=== PATIENT | female | born 1980 | race Caucasian/White ===

== ENCOUNTER 2018-03-12 23:22 | Emergency (ER) | payer SELFPAY ==
[2018-03-13] MEDS ORDERED: METOCLOPRAMIDE 10 MG/2mL INJ ONE (00:10)
[2018-03-13] MEDS ORDERED: KETOROLAC 30 MG/ML INJ ONE (00:10)
[2018-03-13] MEDS ORDERED: DIPHENHYDRAMINE 50 MG/ML VIAL ONE (00:10)
--- NOTE | 2018-03-13 01:00 | ER ---
Nurse's Notes [facility] Name: Guero Chanel Age: 37 yrs Sex: Female : 1980 Arrival Date: 03/12/2018 Time: 23:25 Bed 19 Private MD: Diagnosis: Headache;Dental caries Presentation: 03/12 23:49 Presenting complaint: Patient states: "I had a seizure while on a [employer] [address] [place] to [place] and ever since then, I have had a bad migraine and nausea and vomiting.". Transition of care: patient was not received from another setting of care. Onset of symptoms was February 2018. Risk Assessment: Do you want to hurt yourself or someone else? Patient reports no desire to harm self or others. Initial Sepsis Screen: Does the patient meet any 2 criteria? No. Patient's initial sepsis screen is negative. Does the patient have a suspected source of infection? No. Patient's initial sepsis screen is negative. Care prior to arrival: None. 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 - Social history:: Smoking status: unknown. - Ebola Screening: : Patient negative for fever greater than or equal to 101.5 degrees Fahrenheit, and additional compatible Ebola Virus Disease symptoms. Screenin/30 00:41 Abuse screen: Denies threats or abuse. Nutritional screening: No deficits noted. jd3 Tuberculosis screening: No symptoms or risk factors identified. Fall Risk IV access (20 points). Ambulatory Aid- None/Bed Rest/Nurse Assist (0 pts). Gait- Normal/Bed Rest/Wheelchair (0 pts) Mental Status- Oriented to own ability (0 pts). Total Joyce Fall Scale indicates No Risk (0-24 pts). Assessment: 03/12 23:33 General: Appears in no apparent distress. uncomfortable, Behavior is calm, cooperative, jd3 appropriate for age. Pain: Complains of pain in head. Neuro: Level of Consciousness is awake, alert, obeys commands, Oriented to person, place, time, situation. Cardiovascular: Capillary refill < 3 seconds Patient's skin is warm and dry. Respiratory: Airway is patent Respiratory effort is even, unlabored, Respiratory pattern is regular, symmetrical. GI: Abdomen is round non-distended, Reports nausea, vomiting. : No signs and/or symptoms were reported regarding the genitourinary system. EENT: No signs and/or symptoms were reported regarding the EENT system. Derm: Skin is intact, Skin is dry, Skin is normal, Skin temperature is warm. Musculoskeletal: Circulation, motion, and sensation intact. Range of motion: intact in all extremities. 03/13 00:42 Reassessment: Patient appears in no apparent distress at this time. Patient and/or jd3 family updated on plan of care and expected duration. Pain level reassessed. Patient is alert, oriented x 3, equal unlabored respirations, skin warm/dry/pink. 01:14 Reassessment: Patient appears in no apparent distress at this time. Patient and/or jd3 family updated on plan of care and expected duration. Pain level reassessed. Patient is alert, oriented x 3, equal unlabored respirations, skin warm/dry/pink. Vital Signs: 03/12 23:43 BP 127 / 96; Pulse 86; Resp 18; Temp 98.5; Pulse Ox 100% on R/A; Weight 70.76 kg; mw2 Height 5 ft. 3 in. (160.02 cm); Pain 8/10; 03/13 00:42 BP 101 / 65; Pulse 73; Resp 16 S; Pulse Ox 100% on R/A; jd3 03/12 23:43 Body Mass Index 27.63 (70.76 kg, 160.02 cm) 2 ED Course: 03/12 23:25 Patient arrived in ED. am2 23:33 Gideon Aponte RN is Primary Nurse. jd3 23:36 Hernan Wilson MD is Attending Physician. 23:51 Triage completed. jd3 23:51 Inserted saline lock: 20 gauge in right antecubital area, using aseptic technique. mw2 Blood collected. 23:58 Arm band placed on. jd3 03/13 00:41 Patient has correct armband on for positive identification. Bed in low position. Call j light in reach. Side rails up X 1. 00:59 Ismael Gilbert MD is Referral Physician. gs 01:01 Medardo Strange DDS is Referral Physician. gs 01:13 No provider procedures requiring assistance completed. IV discontinued, intact, jd3 bleeding controlled, No redness/swelling at site. Pressure dressing applied. Administered Medications: 00:10 Drug: Benadryl 25 mg Route: IVP; Site: right antecubital; jd3 01:14 Follow up: Response: No adverse reaction jd3 00:10 Drug: TORadol 30 mg Route: IVP; Site: right antecubital; jd3 01:14 Follow up: Response: No adverse reaction jd3 00:11 Drug: Reglan 10 mg Route: IVP; Site: right antecubital; jd3 01:14 Follow up: Response: No adverse reaction jd3 Outcome: 01:00 Discharge ordered by . gs 01:13 Discharged to home ambulatory, with friend. jd3 01:13 Condition: stable 01:13 Discharge instructions given to patient, Instructed on discharge instructions, follow up and referral plans. medication usage, Demonstrated understanding of instructions, follow-up care, medications, Prescriptions given X 1. 01:14 Patient left the ED. jd3 Signatures: Desiree Sunshine am2 Hernan Wilson MD MD Gideon Aponte RN RN jd3 Eleuterio Vogel mw2
--- NOTE | 2018-03-13 01:01 | EDPHYS ---
Physician Documentation [facility] Name: Guero Chanel Age: 37 yrs Sex: Female : 1980 Arrival Date: 03/12/2018 Time: 23:25 Bed 19 Private MD: ED Physician Hernan Wilson HPI: 03/13 01:13 This 37 yrs old Female presents to ER via Ambulatory with complaints of gs Headache. 01:13 The patient complains of pain to the right rastafarian. The patient describes the headache gs as throbbing. Onset: The symptoms/episode began/occurred 5 day(s) ago, and became persistent. Associated signs and symptoms: Pertinent positives: nausea. Severity of symptoms: At its worst the pain was moderate, in the emergency department the pain is unchanged. Headache History: The patient has had previous headaches and this one is similar to previous episodes. The symptoms are alleviated by nothing. the symptoms are aggravated by nothing. The patient has experienced similar episodes in the past, multiple times. 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 - Social history:: Smoking status: unknown. - Ebola Screening: : Patient negative for fever greater than or equal to 101.5 degrees Fahrenheit, and additional compatible Ebola Virus Disease symptoms. ROS: 03/13 01:13 ENT: Positive for of the lower left second molar, Teeth pain gs All other systems are negative. Exam: 01:13 Head/Face: Normocephalic, atraumatic. Eyes: Pupils equal round and reactive to light, gs extra-ocular motions intact. Lids and lashes normal. Conjunctiva and sclera are non-icteric and not injected. Cornea within normal limits. Periorbital areas with no swelling, redness, or edema. Neck: Trachea midline, no thyromegaly or masses palpated, and no cervical lymphadenopathy. Supple, full range of motion without nuchal rigidity, or vertebral point tenderness. No Meningismus. Chest/axilla: Normal chest wall appearance and motion. Nontender with no deformity. No lesions are appreciated. Cardiovascular: Regular rate and rhythm with a normal S1 and S2. No gallops, murmurs, or rubs. Normal PMI, no JVD. No pulse deficits. Respiratory: Lungs have equal breath sounds bilaterally, clear to auscultation and percussion. No rales, rhonchi or wheezes noted. No increased work of breathing, no retractions or nasal flaring. Abdomen/GI: Soft, non-tender, with normal bowel sounds. No distension or tympany. No guarding or rebound. No evidence of tenderness throughout. Back: No spinal tenderness. No costovertebral tenderness. Full range of motion. Skin: Warm, dry with normal turgor. Normal color with no rashes, no lesions, and no evidence of cellulitis. MS/ Extremity: Pulses equal, no cyanosis. Neurovascular intact. Full, normal range of motion. Neuro: Awake and alert, GCS 15, oriented to person, place, time, and situation. Cranial nerves II-XII grossly intact. Motor strength 5/5 in all extremities. Sensory grossly intact. Cerebellar exam normal. Normal gait. 01:13 Constitutional: The patient appears in no acute distress, alert, awake. 01:13 ENT: Dental exam: dental caries, that is moderate, diffusely. Vital Signs: 03/12 23:43 BP 127 / 96; Pulse 86; Resp 18; Temp 98.5; Pulse Ox 100% on R/A; Weight 70.76 kg; mw2 Height 5 ft. 3 in. (160.02 cm); Pain 8/10; 03/13 00:42 BP 101 / 65; Pulse 73; Resp 16 S; Pulse Ox 100% on R/A; jd3 03/12 23:43 Body Mass Index 27.63 (70.76 kg, 160.02 cm) mw2 MDM: 03/12 23:49 Patient medically screened. 11/30 01:13 Differential diagnosis: migraine, vasomotor headache. Data reviewed: vital signs, nurses notes. Response to treatment: the patient's symptoms have resolved after treatment, and as a result, I will discharge patient. ED course: pt asking for opiate pain meds for chronic conditions, told her not therapeutic.. Administered Medications: 00:10 Drug: Benadryl 25 mg Route: IVP; Site: right antecubital; jd3 01:14 Follow up: Response: No adverse reaction jd3 00:10 Drug: TORadol 30 mg Route: IVP; Site: right antecubital; jd3 01:14 Follow up: Response: No adverse reaction jd3 00:11 Drug: Reglan 10 mg Route: IVP; Site: right antecubital; jd3 01:14 Follow up: Response: No adverse reaction jd3 Disposition: 03/13/18 01:00 Discharged to Home. Impression: Headache, Dental caries. - Condition is Stable. - Discharge Instructions: Dental Caries, Adult, General Headache Without Cause, Migraine Headache. - Prescriptions for Amoxicillin 875 mg Oral Tablet - take 1 tablet by ORAL route every 12 hours for 7 days; 14 tablet. - Medication Reconciliation Form, Thank You Letter, Antibiotic Education, Prescription Opioid Use form. - Follow up: Ismael Gilbert MD; When: 2 - 3 days; Reason: Re-evaluation by your physician. Follow up: Medardo Strange DDS; When: 2 - 3 days; Reason: Re-evaluation by your physician. Signatures: Hernan Wilson MD MD Gideon Aponte RN RN jd3 Corrections: (The following items were deleted from the chart) 01:01 01:00 03/13/2018 01:00 Discharged to Home. Impression: Headache; Dental caries. gs Condition is Stable. Forms are Medication Reconciliation Form, Thank You Letter, Antibiotic Education, Prescription Opioid Use. Follow up: Ismael Gilbert; When: 2 - 3 days; Reason: Re-evaluation by your physician. gs 01:14 01:01 03/13/2018 01:00 Discharged to Home. Impression: Headache; Dental caries. jd3 Condition is Stable. Discharge Instructions: Dental Caries, Adult, General Headache Without Cause, Migraine Headache. Prescriptions for Amoxicillin 875 mg Oral Tablet - take 1 tablet by ORAL route every 12 hours for 7 days; 14 tablet. and Forms are Medication Reconciliation Form, Thank You Letter, Antibiotic Education, Prescription Opioid Use. Follow up: Ismael Gilbert; When: 2 - 3 days; Reason: Re-evaluation by your physician. Follow up: Medardo Strange; When: 2 - 3 days; Reason: Re-evaluation by your physician. gs
== END 2018-03-13 01:14 | disposition home or self-care (01) ==
LOC: ER 23:22
DX: K02.9 Dental caries, unspecified (principal); I10 Essential (primary) hypertension; E78.00 Pure hypercholesterolemia, unspecified; G40.909 Epilepsy, unspecified, not intractable, without status epilepticus; Z88.1 Allergy status to other antibiotic agents; Z91.040 Latex allergy status; Z91.048 Other nonmedicinal substance allergy status
CPT/HCPCS: 96374; 96375; 99284; J2765

== ENCOUNTER 2018-03-22 14:01 | Emergency (ER) | payer SELFPAY ==
--- NOTE | 2018-03-22 14:35 | ER ---
Nurse's Notes [facility] Name: Guero Chanel Age: 37 yrs Sex: Female : 1980 Arrival Date: 03/22/2018 Time: 14:03 Bed 17 Private MD: Diagnosis: Dental root caries;Dental alveolar anomalies;Dental caries Presentation: 03/22 14:08 Presenting complaint: Patient states: Left lower jaw swelling and pain since this AM. aj Transition of care: patient was not received from another setting of care. Onset of symptoms was March 22, 2018. Risk Assessment: Do you want to hurt yourself or someone else? Patient reports no desire to harm self or others. Initial Sepsis Screen: Does the patient meet any 2 criteria? No. Patient's initial sepsis screen is negative. Does the patient have a suspected source of infection? No. Patient's initial sepsis screen is negative. Care prior to arrival: Medication(s) given: Motrin, 800 mg. 14:08 Method Of Arrival: Ambulatory aj 14:08 Acuity: CEDRICK 4 aj Triage Assessment: 14:09 General: Appears in no apparent distress. comfortable, Behavior is calm, cooperative, aj appropriate for age. Pain: Complains of pain in left cheek. EENT: Poor dentition noted. Reports pain in left cheek. Respiratory: Airway is patent Respiratory effort is even, unlabored, Respiratory pattern is regular, symmetrical. Derm: Skin is intact, is healthy with good turgor, Skin is pink, warm \\T\\ dry. normal. 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 03/22/2018 aj Historical: - Allergies: 14:09 Bactrim; aj 14:09 Doxycycline; aj 14:09 Latex, Natural Rubber; aj 14:09 Macrobid; aj 14:09 "Silk Tape"; aj - Home Meds: 14:09 Depakote 500 mg Oral TbEC 1 tab 3 times per day [Active]; risperidone 0.5 mg oral tab aj once daily [Active]; meloxicam oral oral [Active]; Flexeril 10 mg Oral tab 1 tab 2 times per day [Active]; - PMHx: 14:09 Asthma; epilepsy; GERD; High Cholesterol; Hypertension; aj - PSHx: 14:09 ; D \\T\\ C; uterin sx; Kidney stents; Lithotripsy; golden eye sx; aj - Immunization history:: Adult Immunizations up to date, Last tetanus immunization: < 5 years ago. - Social history:: Smoking status: Patient uses tobacco products, smokes one-half pack cigarettes per day. - Ebola Screening: : Patient negative for fever greater than or equal to 101.5 degrees Fahrenheit, and additional compatible Ebola Virus Disease symptoms Patient denies exposure to infectious person Patient denies travel to an Ebola-affected area in the 21 days before illness onset No symptoms or risks identified at this time. - Family history:: not pertinent. Screenin:21 Abuse screen: Denies threats or abuse. Nutritional screening: No deficits noted. em Tuberculosis screening: No symptoms or risk factors identified. Fall Risk None identified. Assessment: 14:21 General: Appears in no apparent distress. uncomfortable, Behavior is calm, cooperative, em Denies fever. Pain: Complains of pain in left cheek Pain currently is 10 out of 10 on a pain scale. Pain began 2-3 days ago. Neuro: Level of Consciousness is awake, alert, obeys commands, Oriented to person, place, time, situation. Cardiovascular: Capillary refill < 3 seconds Patient's skin is warm and dry. Respiratory: Airway is patent Respiratory effort is even, unlabored, Respiratory pattern is regular, symmetrical. GI: Abdomen is flat, Patient currently denies nausea, vomiting. : No signs and/or symptoms were reported regarding the genitourinary system. EENT: Poor dentition noted. Dental caries noted in lower left second bicuspid (#20) Throat is clear is pink. Derm: Skin is intact, is healthy with good turgor, Skin is pink, warm \\T\\ dry. Musculoskeletal: Swelling present in left jaw. Vital Signs: 14:09 BP 112 / 83; Pulse 104; Resp 20; Temp 98.3; Pulse Ox 100% on R/A; Weight 70.76 kg; aj Height 5 ft. 3 in. (160.02 cm); 14:09 Body Mass Index 27.63 (70.76 kg, 160.02 cm) aj ED Course: 14:03 Patient arrived in ED. as 14:08 Triage completed. aj 14:09 Arm band placed on right wrist. Patient placed in an exam room. aj 14:13 Americo Millan LVN is Primary Nurse. em 14:21 Patient has correct armband on for positive identification. Bed in low position. Call em light in reach. 14:21 No provider procedures requiring assistance completed. Patient did not have IV access em during this emergency room visit. 14:26 Rob Schulz MD is Attending Physician. [facility] 14:35 Medardo Strange DDS is Referral Physician. [facility] Administered Medications: 14:49 Drug: Augmentin 875 mg Route: PO; em 14:50 Follow up: Response: Medication administered at discharge. em Outcome: 14:35 Discharge ordered by . [facility] 14:49 Discharged to home ambulatory. em 14:49 Condition: good 14:49 Discharge instructions given to patient, Instructed on discharge instructions, follow up and referral plans. no drinking with medication, no driving heavy equipment, medication usage, Demonstrated understanding of instructions, follow-up care, medications, Prescriptions given X 2. 14:52 Patient left the ED. em Signatures: Desiree Petersen, Rob Grey RN, MD MD cha Munoz, Edgar, VENTURE CAPITALIST VENTURE CAPITALIST Marta Méndez as
--- NOTE | 2018-03-22 14:36 | EDPHYS ---
Physician Documentation [facility] Name: Guero Chanel Age: 37 yrs Sex: Female : 1980 Arrival Date: 03/22/2018 Time: 14:03 Bed 17 Private MD: ED Physician Rob Schulz HPI: 03/22 14:32 This 37 yrs old Female presents to ER via Ambulatory with complaints of Jaw radha Pain. 14:32 The patient presents with broken tooth/teeth, lost tooth/teeth, pain, swelling. The radha problem is located in the face and left cheek. Onset: The symptoms/episode began/occurred 3 day(s) ago. Duration: The symptoms are continuous, and are steadily getting worse. Modifying factors: The symptoms are alleviated by prescription meds, the symptoms are aggravated by chewing. Associated signs and symptoms: The patient has no apparent associated signs or symptoms. Severity of symptoms: At their worst the symptoms were moderate, in the emergency department the symptoms are unchanged. The patient has not experienced similar symptoms in the past. 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/2018 aj Historical: - Allergies: 14:09 Bactrim; aj 14:09 Doxycycline; aj 14:09 Latex, Natural Rubber; aj 14:09 Macrobid; aj 14:09 "Silk Tape"; aj - Home Meds: 14:09 Depakote 500 mg Oral TbEC 1 tab 3 times per day [Active]; risperidone 0.5 mg oral tab aj once daily [Active]; meloxicam oral oral [Active]; Flexeril 10 mg Oral tab 1 tab 2 times per day [Active]; - PMHx: 14:09 Asthma; epilepsy; GERD; High Cholesterol; Hypertension; aj - PSHx: 14:09 ; D \\T\\ C; uterin sx; Kidney stents; Lithotripsy; golden eye sx; aj - Immunization history:: Adult Immunizations up to date, Last tetanus immunization: < 5 years ago. - Social history:: Smoking status: Patient uses tobacco products, smokes one-half pack cigarettes per day. - Ebola Screening: : Patient negative for fever greater than or equal to 101.5 degrees Fahrenheit, and additional compatible Ebola Virus Disease symptoms Patient denies exposure to infectious person Patient denies travel to an Ebola-affected area in the 21 days before illness onset No symptoms or risks identified at this time. - Family history:: not pertinent. ROS: 14:32 Constitutional: Negative for fever, chills, and weight loss, Eyes: Negative for injury, radha pain, redness, and discharge, ENT: Negative for injury, pain, and discharge, Neck: Negative for injury, pain, and swelling, Cardiovascular: Negative for chest pain, palpitations, and edema, Respiratory: Negative for shortness of breath, cough, wheezing, and pleuritic chest pain, Abdomen/GI: Negative for abdominal pain, nausea, vomiting, diarrhea, and constipation, Back: Negative for injury and pain, : Negative for injury, bleeding, discharge, and swelling, MS/Extremity: Negative for injury and deformity, Skin: Negative for injury, rash, and discoloration, Neuro: Negative for headache, weakness, numbness, tingling, and seizure, Psych: Negative for depression, anxiety, suicide ideation, homicidal ideation, and hallucinations, Allergy/Immunology: Negative for hives, rash, and allergies, Endocrine: Negative for neck swelling, polydipsia, polyuria, polyphagia, and marked weight changes, Hematologic/Lymphatic: Negative for swollen nodes, abnormal bleeding, and unusual bruising. Exam: 14:32 Constitutional: This is a well developed, well nourished patient who is awake, alert, rahda and in no acute distress. Eyes: Pupils equal round and reactive to light, extra-ocular motions intact. Lids and lashes normal. Conjunctiva and sclera are non-icteric and not injected. Cornea within normal limits. Periorbital areas with no swelling, redness, or edema. ENT: Nares patent. No nasal discharge, no septal abnormalities noted. Tympanic membranes are normal and external auditory canals are clear. Oropharynx with no redness, swelling, or masses, exudates, or evidence of obstruction, uvula midline. Mucous membranes moist. Neck: Trachea midline, no thyromegaly or masses palpated, and no cervical lymphadenopathy. Supple, full range of motion without nuchal rigidity, or vertebral point tenderness. No Meningismus. Chest/axilla: Normal chest wall appearance and motion. Nontender with no deformity. No lesions are appreciated. Cardiovascular: Regular rate and rhythm with a normal S1 and S2. No gallops, murmurs, or rubs. Normal PMI, no JVD. No pulse deficits. Respiratory: Lungs have equal breath sounds bilaterally, clear to auscultation and percussion. No rales, rhonchi or wheezes noted. No increased work of breathing, no retractions or nasal flaring. Abdomen/GI: Soft, non-tender, with normal bowel sounds. No distension or tympany. No guarding or rebound. No evidence of tenderness throughout. Back: No spinal tenderness. No costovertebral tenderness. Full range of motion. Skin: Warm, dry with normal turgor. Normal color with no rashes, no lesions, and no evidence of cellulitis. MS/ Extremity: Pulses equal, no cyanosis. Neurovascular intact. Full, normal range of motion. Neuro: Awake and alert, GCS 15, oriented to person, place, time, and situation. Cranial nerves II-XII grossly intact. Motor strength 5/5 in all extremities. Sensory grossly intact. Cerebellar exam normal. Normal gait. Psych: Awake, alert, with orientation to person, place and time. Behavior, mood, and affect are within normal limits. 14:32 Head/face: Noted is swelling, tenderness, that is moderate, of the left jaw. Vital Signs: 14:09 BP 112 / 83; Pulse 104; Resp 20; Temp 98.3; Pulse Ox 100% on R/A; Weight 70.76 kg; aj Height 5 ft. 3 in. (160.02 cm); 14:09 Body Mass Index 27.63 (70.76 kg, 160.02 cm) aj MDM: 14:26 Patient medically screened. [facility] 14:34 Data reviewed: vital signs, nurses notes. [facility] Administered Medications: 14:49 Drug: Augmentin 875 mg Route: PO; em 14:50 Follow up: Response: Medication administered at discharge. em Disposition: 03/22/18 14:35 Discharged to Home. Impression: Dental root caries, Dental alveolar anomalies, Dental caries. - Condition is Stable. - Discharge Instructions: Dental Abscess, Dental Caries, Adult, Dental Pain, Dental Pain, [id number], Diet and Dental Disease, Dental Caries, [id number]. - Prescriptions for Amoxicillin 500 mg Oral Capsule - take 1 capsule by ORAL route every 8 hours for 10 days; 30 tablet. Tylenol- Codeine #3 300-30 mg Oral Tablet - take 2 tablets by ORAL route every 6 hours As needed; 26 tablet. - Medication Reconciliation Form, Thank You Letter, Antibiotic Education, Prescription Opioid Use form. - Follow up: Private Physician; When: 2 - 3 days; Reason: Recheck today's complaints, Continuance of care, Re-evaluation by your physician. Follow up: Medardo Strange DDS; When: 2 - 3 days; Reason: Recheck today's complaints, Continuance of care, Re-evaluation by your physician. - Problem is new. - Symptoms have improved. Signatures: Desiree Petersen RN RN aj Anderson, Corey, MD MD cha Munoz, Edgar, PAINTINGS CONSERVATOR PAINTINGS CONSERVATOR em Corrections: (The following items were deleted from the chart) 14:52 14:35 03/22/2018 14:35 Discharged to Home. Impression: Dental root caries; Dental em alveolar anomalies; Dental caries. Condition is Stable. Forms are Medication Reconciliation Form, Thank You Letter, Antibiotic Education, Prescription Opioid Use. Follow up: Private Physician; When: 2 - 3 days; Reason: Recheck today's complaints, Continuance of care, Re-evaluation by your physician. Follow up: Medardo Strange; When: 2 - 3 days; Reason: Recheck today's complaints, Continuance of care, Re-evaluation by your physician. Problem is new. Symptoms have improved. radha
[2018-03-22] MEDS ORDERED: AMOX TR/K CLAV 400MG CHEW TAB PO ONE (14:47)
[2018-03-22] MEDS ORDERED: AMOX/K CLAV 875 MG TAB ONE (14:49)
== END 2018-03-22 14:52 | disposition home or self-care (01) ==
LOC: ER 14:01
DX: K02.7 Dental root caries (principal); K02.9 Dental caries, unspecified; M26.79 Other specified alveolar anomalies; F17.210 Nicotine dependence, cigarettes, uncomplicated; I10 Essential (primary) hypertension; E78.00 Pure hypercholesterolemia, unspecified; G40.909 Epilepsy, unspecified, not intractable, without status epilepticus; J45.909 Unspecified asthma, uncomplicated; Z88.1 Allergy status to other antibiotic agents; Z88.8 Allergy status to other drugs, medicaments and biological substances; Z91.040 Latex allergy status; Z91.048 Other nonmedicinal substance allergy status
CPT/HCPCS: 99283

== ENCOUNTER 2018-04-02 12:09 | Emergency (ER) | payer SELFPAY ==
[2018-04-02] MEDS ORDERED: NA CHLORIDE 0.9% 1,000 ML ONE (13:10)
[2018-04-02] MEDS ORDERED: ONDANSETRON 4 MG/2 ML VIAL ONE (13:10)
[2018-04-02] MEDS ORDERED: DEXAMETHASONE 10 MG/ML VIAL ONE (13:10)
[2018-04-02] MEDS ORDERED: FAMOTIDINE 20 MG/2 ML VIAL IV ONE (13:10)
[2018-04-02 13:19] LABS: Absolute Lymphocytes (CBC) 1.5 K/uL (0.7-4.9); Absolute Monocytes 0.4 K/uL (0.1-1.3); Absolute Neutrophil 2.8 K/uL (1.8-8.0); Basophils % 0.3 % (0-1.3); Eosinophils % 1.9 % (0-4.4); Hematocrit 40.8 % (36.0-45.0); Lymphocytes % 32.1 % (15.3-44.8); Monocytes % 8.6 % (3.3-12.3); RBC Red Blood Cell Count 4.64 M/uL (3.86-4.86)
[2018-04-02 13:22] LABS: Protime INR 1.07
--- NOTE | 2018-04-02 13:28 | RAD REPORT ---
EXAM DESCRIPTION: CT - Head Brain Wo Cont - 04/02/2018 1:20 pm CLINICAL HISTORY: Seizure;Headache COMPARISON: No comparisons TECHNIQUE: All CT scans are performed using dose optimization technique as appropriate and may inclu de automated exposure control or mA/KV adjustment according to patient size. FINDINGS: No intracranial hemorrhage, hydrocephalus or extra-axial fluid collection.No areas of brai n edema or evidence of midline shift. The paranasal sinuses and mastoids are clear. The calvarium is intact. IMPRESSION: No acute intracranial abnormality.
[2018-04-02 13:47] LABS: ALT/SGPT 28 U/L (12-78); AST/SGOT 10 U/L (15-37); Albumin 3.7 g/dL (3.4-5.0); Alkaline Phosphatase 74 U/L (45-117); BUN Blood Urea Nitrogen 19 mg/dL (7-18); Bicarbonate 28 mmol/L (21-32); Bilirubin Direct < 0.1 mg/dL (0-0.2); Bilirubin Total 0.3 mg/dL (0.2-1.0); Glucose Level 73 mg/dL (74-106); Potassium 4.2 mmol/L (3.5-5.1); Protein, Total 7.2 g/dL (6.4-8.2); Sodium Level 138 mmol/L (136-145)
[2018-04-02 13:48] LABS: Barbiturates NEGATIVE (NEGATIVE); Benzodiazepines NEGATIVE (NEGATIVE); Cocaine NEGATIVE (NEGATIVE); METHAMPHETAM NEGATIVE (NEGATIVE); Methadone NEGATIVE (NEGATIVE); Opiates NEGATIVE (NEGATIVE); Phencyclidine NEGATIVE (NEGATIVE); THC Cannibis POSITIVE (NEGATIVE)
[2018-04-02 14:32] LABS: Urine Blood TRACE (NEG); Urine Glucose NEGATIVE (NEG); Urine Protein NEGATIVE (NEG)
[2018-04-02] MEDS ORDERED: DIVALPROEX DR 250 MG TAB PO ONE (15:11)
[2018-04-02] MEDS ORDERED: KETOROLAC 30 MG/ML INJ ONE (15:11)
[2018-04-02] MEDS ORDERED: MEPERIDINE HCL 25 MG/0.5 ML ONE (15:11)
--- NOTE | 2018-04-02 15:16 | EDPHYS ---
Physician Documentation [facility] Name: Guero Chanel Age: 37 yrs Sex: Female : 1980 Arrival Date: 04/02/2018 Time: 12:12 Bed 16 Private MD: None, None ED Physician Rustam Bell HPI: 04/02 12:52 This 37 yrs old Female presents to ER via Ambulatory with complaints of cp Headache, Vomiting. 12:52 The patient complains of pain to the all over head. cp 12:55 The patient describes the headache as constant. Onset: The symptoms/episode cp began/occurred yesterday. Associated signs and symptoms: Pertinent positives: nausea, vomiting, Pertinent negatives: altered mental status, fever, neck stiffness, sinus congestion, sinus tenderness, weakness. 12:55 Severity of symptoms: At its worst the pain was "never this severe", in the emergency cp department the pain is unchanged, despite home interventions. Headache History: The patient has had previous headaches and this one is different than previous episodes. Patient reports having seizure yesterday that broke 2 of her front teeth. 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 - Social history:: Smoking status: Patient/guardian denies using tobacco. - Ebola Screening: : Patient negative for fever greater than or equal to 101.5 degrees Fahrenheit, and additional compatible Ebola Virus Disease symptoms. ROS: 13:00 Constitutional: Negative for body aches, chills, fever, poor PO intake. cp 13:00 Eyes: Negative for injury, pain, redness, and discharge. cp 13:00 ENT: Positive for dental pain, Negative for drainage from ear(s), ear pain, rhinorrhea, sinus congestion, difficulty swallowing, difficulty handling secretions, hoarseness. 13:00 Neck: Negative for pain with movement, pain at rest, stiffness, tenderness. 13:00 Cardiovascular: Negative for chest pain, edema, palpitations. 13:00 Respiratory: Negative for cough, shortness of breath, wheezing. 13:00 Abdomen/GI: Positive for nausea, vomiting, Negative for abdominal pain, diarrhea, constipation, anorexia, hematemesis, black/tarry stool, rectal bleeding. 13:00 Back: Negative for pain at rest, pain with movement, radiated pain. 13:00 : Negative for urinary symptoms, vaginal bleeding, vaginal discharge. 13:00 Skin: Negative for cellulitis, rash. 13:00 Neuro: Positive for headache, Negative for syncope, weakness. 13:00 All other systems are negative. Exam: 13:11 Constitutional: The patient appears in no acute distress, alert, awake, non-toxic, well cp developed, well nourished. 13:11 Head/face: Noted is swelling, that is mild, of the left cheek and left jaw. cp 13:11 Eyes: Periorbital structures: appear normal, Pupils: equal, round, and reactive to light and accomodation, Extraocular movements: intact throughout, Conjunctiva: normal, no exudate, no injection, Sclera: no appreciated abnormality, Lids and lashes: appear normal, bilaterally. 13:11 ENT: External ear(s): are unremarkable, Ear canal(s): are normal, clear, TM's: bulging, is not appreciated, bilaterally, dullness, bilaterally, erythema, is not appreciated, bilaterally, Nose: is normal, Mouth: Lips: moist, Oral mucosa: pink and intact, moist, Tongue: is normal, abscess, is not appreciated, drooling, is not appreciated, Posterior pharynx: Airway: no evidence of obstruction, patent, Tonsils: are normal in appearance, Uvula: midline, erythema, is not appreciated, exudate, is not appreciated, Dental exam: abscess, is not appreciated, dental caries, that is severe, diffusely, fractured teeth are noted, diffusely, missing teeth, diffusely, Voice: is normal. 13:11 Neck: C-spine: vertebral tenderness, is not appreciated, crepitus, is not appreciated, ROM/movement: is normal, is supple, without pain, no range of motions limitations, no meningismus, no nuchal rigidity. 13:11 Chest/axilla: Inspection: normal, Palpation: is normal, no crepitus, no tenderness. 13:11 Cardiovascular: Rate: normal, Rhythm: regular, Pulses: Pulses are 2+ in right radial artery and left radial artery. Edema: is not appreciated, JVD: is not appreciated. 13:11 Respiratory: the patient does not display signs of respiratory distress, Respirations: normal, no use of accessory muscles, no retractions, no splinting, no tachypnea, Breath sounds: are clear throughout, no decreased breath sounds, no stridor, no wheezing. 13:11 Abdomen/GI: Inspection: abdomen appears normal, Palpation: abdomen is soft and non-tender, in all quadrants. 13:11 Back: pain, is absent, ROM is normal. 13:11 Skin: cellulitis, is not appreciated, no rash present. 13:11 Neuro: Orientation: to person, place \\T\\ time. Mentation: is normal, Cerebellar function: is grossly normal, Motor: is normal, Sensation: is normal. 13:17 ECG was reviewed by the Attending Physician. cp Vital Signs: 12:33 BP 117 / 87; Pulse 96; Resp 20; Temp 97.6; Pulse Ox 98% on R/A; Weight 71.21 kg (R); aj1 Height 5 ft. 3 in. (160.02 cm) (R); Pain 9/10; 13:33 BP 123 / 80; Pulse 75; Resp 16; Pulse Ox 99% on R/A; rb1 14:30 BP 116 / 90; Pulse 69; Resp 17; Pulse Ox 95% ; Pain 7/10; rb1 15:30 BP 135 / 93; Pulse 67; Resp 15; Pulse Ox 95% on R/A; Pain 8/10; rb1 12:33 Body Mass Index 27.81 (71.21 kg, 160.02 cm) aj1 MDM: 12:39 Patient medically screened. cp 13:15 Differential diagnosis: intracerebral hemorrhage, meningitis, meningoencephalitis, cp migraine, neoplasm, sinusitis, subarachnoid bleed, tension headache. 14:55 Refusal of service: The patient/guardian displays adequate decision making capability cp and despite a detailed discussion of alternatives, benefits, risks, and consequences refuses: Lumbar Puncture procedure. 15:15 Data reviewed: vital signs, nurses notes, lab test result(s), EKG, radiologic studies, cp CT scan, and as a result, I will discharge patient. 15:15 Counseling: I had a detailed discussion with the patient and/or guardian regarding: the cp historical points, exam findings, and any diagnostic results supporting the discharge/admit diagnosis, lab results, radiology results, the need for outpatient follow up, a family practitioner, a neurologist, to return to the emergency department if symptoms worsen or persist or if there are any questions or concerns that arise at home. 15:15 Response to treatment: the patient's symptoms have markedly improved after treatment, cp VSS. Labs, EKG and radiology studies reviewed. No seizure activity observed in ED. Will discharge to home for continued monitoring. 04/02 12:50 Order name: Acetaminophen cp 04/02 12:50 Order name: Basic Metabolic Panel 04/02 12:50 Order name: CBC with Diff; Complete Time: 14:02 cp 04/02 12:50 Order name: ETOH Level; Complete Time: 14:02 cp 04/02 12:50 Order name: Hepatic Function; Complete Time: 14:02 cp 04/02 14:20 Interpretation: Normal except: AST 10. cp 04/02 12:50 Order name: PT-INR; Complete Time: 14:02 cp 04/02 14:20 Interpretation: Normal except: PT 12.6. cp 04/02 12:50 Order name: Ptt, Activated; Complete Time: 14:02 cp 04/02 12:50 Order name: Salicylate; Complete Time: 14:20 cp 04/02 12:50 Order name: Urine Drug Screen; Complete Time: 14:02 cp 04/02 12:50 Order name: Depakote; Complete Time: 14:02 cp 04/02 12:51 Order name: Acetaminophen Level; Complete Time: 14:02 EDMS 04/02 12:51 Order name: Basic Metabolic Panel; Complete Time: 14:02 EDMS 04/02 14:21 Interpretation: Normal except: GLUC 73; BUN 19. cp 04/02 13:51 Order name: Urine Dipstick--Ancillary (enter results); Complete Time: 14:54 eb 04/02 13:51 Order name: Urine --Ancillary (enter results); Complete Time: 14:54 eb 04/02 12:50 Order name: Urine Test (obtain specimen); Complete Time: 13:13 cp 04/02 12:50 Order name: EKG; Complete Time: 12:51 cp 04/02 12:50 Order name: EKG - Nurse/Tech; Complete Time: 13:14 cp 04/02 12:50 Order name: IV Saline Lock; Complete Time: 13:13 cp 04/02 12:50 Order name: Labs collected and sent; Complete Time: 13:13 cp 04/02 12:50 Order name: Urine Dipstick-Ancillary (obtain specimen); Complete Time: 13:13 cp 04/02 12:50 Order name: CT Head Brain wo Cont; Complete Time: 14:02 cp 04/02 14:21 Interpretation: Report reviewed. cp 04/02 14:22 Order name: PO challenge; Complete Time: 15:45 cp EC:17 Rate is 78 beats/min. Rhythm is regular. WV interval is normal. QRS interval is normal. cp QT interval is normal. Interpreted by me. Reviewed by me. Administered Medications: 13:14 Drug: NS 0.9% 1000 ml Route: IV; Rate: 1 bolus; Site: right antecubital; rb1 15:01 Follow up: IV Status: Completed infusion rb1 13:14 Drug: Zofran 4 mg Route: IVP; Site: right antecubital; rb1 13:30 Follow up: Response: No adverse reaction; Nausea is decreased rb1 13:14 Drug: Pepcid 20 mg Route: IVP; Site: right antecubital; rb1 13:30 Follow up: Response: No adverse reaction rb1 13:14 Drug: Decadron - Dexamethasone 10 mg Route: IVP; Site: right antecubital; rb1 13:30 Follow up: Response: No adverse reaction rb1 15:05 Drug: Depakote 500 mg Route: PO; rb1 15:40 Follow up: Response: No adverse reaction rb1 15:05 Drug: Demerol - Meperidine 12.5 mg Route: IVP; Site: right antecubital; rb1 15:20 Follow up: Response: No adverse reaction; Pain is decreased rb1 15:05 Drug: TORadol 30 mg Route: IVP; Site: right antecubital; rb1 15:20 Follow up: Response: No adverse reaction; Pain is decreased rb1 Disposition: 16:15 Chart complete. cp Disposition: 04/02/18 15:16 Discharged to Home. Impression: Vomiting, Headache, Epilepsy and recurrent seizures. - Condition is Stable. - Discharge Instructions: Migraine Headache, Nausea and Vomiting, Adult, Seizure, Adult, Dental Caries, [id number]. - Prescriptions for Zofran 4 mg Oral Tablet - take 1 tablet by ORAL route every 12 hours As needed; 20 tablet. - Medication Reconciliation Form, Thank You Letter, Antibiotic Education, Prescription Opioid Use form. - Follow up: Private Physician; When: 1 - 2 days; Reason: Recheck today's complaints. - Problem is new. - Symptoms have improved. Addendum: 04/13/2018 07:27 Co-signature as Attending Physician, Rustam Bell MD I agree with the assessment and k dr plan of care. Signatures: Dispatcher [employer] EDCT Laura Horn RN RN aj1 Rustam Bell MD MD kdr Rob Sevilla PA PA cp Lucia Schroeder, RN RN rb1 Corrections: (The following items were deleted from the chart) 04/02 15:57 15:16 04/02/2018 15:16 Discharged to Home. Impression: Vomiting; Headache; Epilepsy and rb1 recurrent seizures. Condition is Stable. Forms are Medication Reconciliation Form, Thank You Letter, Antibiotic Education, Prescription Opioid Use. Follow up: Private Physician; When: 1 - 2 days; Reason: Recheck today's complaints. Problem is new. Symptoms have improved. cp
--- NOTE | 2018-04-02 15:16 | ER ---
Nurse's Notes [facility] Name: Gueor Chanel Age: 37 yrs Sex: Female : 1980 Arrival Date: 04/02/2018 Time: 12:12 Bed 16 Private MD: None, None Diagnosis: Vomiting;Headache;Epilepsy and recurrent seizures Presentation: 04/02 12:31 Presenting complaint: Patient states: "I had a seizure last night, I broke 2 of my aj1 teeth and my family was concerned because I've been throwing up, and I can't get rid of this headache. I can't get my medicines to stay down" Reports headache all over her head, vomiting since last night. Transition of care: patient was not received from another setting of care. Onset of symptoms was April 01, 2018. Risk Assessment: Do you want to hurt yourself or someone else? Patient reports no desire to harm self or others. Initial Sepsis Screen: Does the patient meet any 2 criteria? No. Patient's initial sepsis screen is negative. Does the patient have a suspected source of infection? No. Patient's initial sepsis screen is negative. Care prior to arrival: None. 12:31 Method Of Arrival: Ambulatory aj1 12:31 Acuity: CEDRICK 3 aj1 Triage Assessment: 12:33 Headache History: The patient has had previous headaches and this one is different than aj1 previous episodes. General: Appears in no apparent distress. uncomfortable, Behavior is calm, cooperative, appropriate for age. Pain: Complains of pain in face and scalp Pain currently is 9 out of 10 on a pain scale. Pain began 1 day ago. Also complains of vomiting. Neuro: Level of Consciousness is awake, alert, obeys commands, Oriented to person, place, time, situation, Speech is normal, Facial symmetry appears normal. Cardiovascular: Patient's skin is warm and dry. Respiratory: Airway is patent Respiratory effort is even, unlabored, Respiratory pattern is regular, symmetrical. 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 - Social history:: Smoking status: Patient/guardian denies using tobacco. - Ebola Screening: : Patient negative for fever greater than or equal to 101.5 degrees Fahrenheit, and additional compatible Ebola Virus Disease symptoms. Screenin:45 Abuse screen: Denies threats or abuse. Nutritional screening: No deficits noted. rb1 Tuberculosis screening: No symptoms or risk factors identified. Fall Risk No fall in past 12 months (0 pts). Secondary diagnosis (15 points) seizures, IV access (20 points). Ambulatory Aid- None/Bed Rest/Nurse Assist (0 pts). Gait- Normal/Bed Rest/Wheelchair (0 pts) Mental Status- Oriented to own ability (0 pts). Total Joyce Fall Scale indicates Low Risk Score (25-44 pts). Fall prevention measures have been instituted. Side Rails Up X 2 Placed close to Nursing Station 1:1 attendant Assigned to Pt. Frequent Obs/Assesments occuring As available Patient and Family Educated on Fall Prevention Program and strategies. Assessment: 12:45 General: Appears in no apparent distress. comfortable, Behavior is calm, cooperative. rb1 Pain: Complains of pain in head. Neuro: Level of Consciousness is awake, alert, obeys commands, Oriented to person, place, time, situation. Cardiovascular: Capillary refill < 3 seconds is brisk in bilateral fingers. Respiratory: Airway is patent Respiratory effort is even, unlabored, Respiratory pattern is regular, symmetrical. GI: Reports nausea. : No signs and/or symptoms were reported regarding the genitourinary system. Derm: Skin is pink, warm \\T\\ dry. Musculoskeletal: Range of motion: intact in all extremities. 12:45 GI: Reports vomiting. rb1 13:45 Reassessment: Patient appears in no apparent distress at this time. No changes from rb1 previously documented assessment. 14:40 Reassessment: Patient appears in no apparent distress at this time. Patient and/or rb1 family updated on plan of care and expected duration. Pain level reassessed. Patient is alert, oriented x 3, equal unlabored respirations, skin warm/dry/pink. 15:40 Reassessment: Patient appears in no apparent distress at this time. No changes from rb1 previously documented assessment. Vital Signs: 12:33 BP 117 / 87; Pulse 96; Resp 20; Temp 97.6; Pulse Ox 98% on R/A; Weight 71.21 kg (R); aj1 Height 5 ft. 3 in. (160.02 cm) (R); Pain 9/10; 13:33 BP 123 / 80; Pulse 75; Resp 16; Pulse Ox 99% on R/A; rb1 14:30 BP 116 / 90; Pulse 69; Resp 17; Pulse Ox 95% ; Pain 7/10; rb1 15:30 BP 135 / 93; Pulse 67; Resp 15; Pulse Ox 95% on R/A; Pain 8/10; rb1 12:33 Body Mass Index 27.81 (71.21 kg, 160.02 cm) aj1 ED Course: 12:12 Patient arrived in ED. sb2 12:13 None, None is Private Physician. sb2 12:33 Triage completed. aj1 12:33 Arm band placed on. aj1 12:39 Rob Sevilla PA is PHCP. cp 12:39 Rustam Bell MD is Attending Physician. cp 12:45 Patient has correct armband on for positive identification. Bed in low position. Call rb1 light in reach. Side rails up X2. Pulse ox on. NIBP on. 12:55 Lucia Schroeder, RN is Primary Nurse. rb1 13:[address] mw3 13:00 Urine collected: clean catch specimen, clear. dh3 13:03 Initial lab(s) drawn, by me, sent to lab. Inserted saline lock: 22 gauge in right dh3 antecubital area, using aseptic technique. Blood collected. 13:19 CT completed. Patient tolerated procedure well. Patient moved back from CT. mw3 13:21 CT Head Brain wo Cont In Process Unspecified. EDMS 15:57 No provider procedures requiring assistance completed. IV discontinued, intact, rb1 bleeding controlled, No redness/swelling at site. Pressure dressing applied. Administered Medications: 13:14 Drug: NS 0.9% 1000 ml Route: IV; Rate: 1 bolus; Site: right antecubital; rb1 15:01 Follow up: IV Status: Completed infusion rb1 13:14 Drug: Zofran 4 mg Route: IVP; Site: right antecubital; rb1 13:30 Follow up: Response: No adverse reaction; Nausea is decreased rb1 13:14 Drug: Pepcid 20 mg Route: IVP; Site: right antecubital; rb1 13:30 Follow up: Response: No adverse reaction rb1 13:14 Drug: Decadron - Dexamethasone 10 mg Route: IVP; Site: right antecubital; rb1 13:30 Follow up: Response: No adverse reaction rb1 15:05 Drug: Depakote 500 mg Route: PO; rb1 15:40 Follow up: Response: No adverse reaction rb1 15:05 Drug: Demerol - Meperidine 12.5 mg Route: IVP; Site: right antecubital; rb1 15:20 Follow up: Response: No adverse reaction; Pain is decreased rb1 15:05 Drug: TORadol 30 mg Route: IVP; Site: right antecubital; rb1 15:20 Follow up: Response: No adverse reaction; Pain is decreased rb1 Outcome: 15:16 Discharge ordered by MD. cp 15:57 Patient left the ED. rb1 15:57 Discharged to home ambulatory, with family. rb1 15:57 Condition: stable 15:57 Discharge instructions given to patient, Instructed on discharge instructions, follow up and referral plans. medication usage, Demonstrated understanding of instructions, follow-up care, medications, Prescriptions given X 1. Signatures: Dispatcher [employer] EDLaura Blnaco RN RN veronica1 Rob Sevilla PA PA cp Barber, Rebecca RN RN rb1 Grace Lara 3 Siria Bagley2 Chen Mishra mw3
--- NOTE | 2018-04-03 07:01 | EKG ---
Test Date: 2018-04-02 Test Time: 13:11:42 Rotor Blade Installer: QUYEN MEASUREMENT RESULTS: Intervals: Rate: 78 TN: 150 QRSD: 84 QT: 386 QTc: 440 [place]: P: 33 TN: 150 QRS: 30 T: 57 INTERPRETIVE STATEMENTS: Normal sinus rhythm Normal ECG No previous ECG available for comparison Electronically Signed On 04-03-18 06:52:51 SALON SHAMPOO ASSISTANT by Octavio Fuentes
== END 2018-04-02 15:57 | disposition home or self-care (01) ==
LOC: ER 12:09
DX: R11.10 Vomiting, unspecified (principal); G40.802 Other epilepsy, not intractable, without status epilepticus; I10 Essential (primary) hypertension; E78.00 Pure hypercholesterolemia, unspecified; Z88.1 Allergy status to other antibiotic agents; Z88.8 Allergy status to other drugs, medicaments and biological substances; Z91.040 Latex allergy status; Z91.048 Other nonmedicinal substance allergy status
CPT/HCPCS: 36415; 70450; 80048; 80076; 80164; 80307; 80320; 80329; 81003; 81025; 85025; 85610; 85730; 93005; 96361; 96374; 96375; 99284; J1100; J2175; J2405; J7030

== ENCOUNTER 2018-04-16 14:15 | Emergency (ER) | payer SELFPAY ==
--- NOTE | 2018-04-16 15:25 | RAD REPORT ---
EXAM DESCRIPTION: CT - Facial Bones W/ Mpr - 04/16/2018 3:10 pm CLINICAL HISTORY: Facial injury with facial pain status post hit in the left jaw by a horse COMPARISON: none TECHNIQUE: Computed axial tomography of the face was obtained. Coronal and sagittal reconstruction w as performed. All CT scans are performed using dose optimization technique as appropriate and may include automated exposure control or mA/KV adjustment according to patient size. FINDINGS: An acute fracture is not seen A TMJ dislocation is not noted. The globes are intact. Fluid within the sinuses is not seen. 13 millimeter lipoma is present within the subcutaneous fat lateral to the left orbit. Lucencies surrounding several teeth likely indicate caries IMPRESSION: Negative for a facial fracture.
[2018-04-16 15:30] LABS: Urine Blood TRACE (NEG); Urine Glucose NEGATIVE (NEG); Urine Protein NEGATIVE (NEG); Urine Specific Gravity >1.030 (1.005-1.030)
[2018-04-16] MEDS ORDERED: HYDROCODONE/APAP 10/325 TAB ONE (16:10)
--- NOTE | 2018-04-16 16:20 | EDPHYS ---
Physician Documentation [facility] Name: Guero Chanel Age: 38 yrs Sex: Female : 1980 Arrival Date: 04/16/2018 Time: 14:16 Bed 16 Private MD: None, None ED Physician Rustam Bell HPI: 04/16 17:32 This 38 yrs old Female presents to ER via Ambulatory with complaints of Mouth kdr Injury. 17:32 The patient presents with pain, The patient states that she was kicked in the mouth by kdr a horse this morning and now has persistent pain to the left jaw. The problem is located in the left cheek. Onset: The symptoms/episode began/occurred suddenly, this morning. Duration: The symptoms are continuous, and are unchanged since they started. Modifying factors: The symptoms are alleviated by nothing, the symptoms are aggravated by chewing, talking. Associated signs and symptoms: The patient has no apparent associated signs or symptoms. Severity of symptoms: At their worst the symptoms were mild, in the emergency department the symptoms are unchanged. The patient has not experienced similar symptoms in the past. 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/2018 ch Historical: - Allergies: 14:23 "Silk Tape"; ch 14:23 Bactrim; ch 14:23 Doxycycline; ch 14:23 Latex, Natural Rubber; ch 14:23 Macrobid; ch - Home Meds: 14:23 Depakote 500 mg Oral TbEC 1 tab 3 times per day [Active]; Flexeril 10 mg Oral tab 1 tab ch 2 times per day [Active]; meloxicam Oral [Active]; risperidone 0.5 mg Oral tab once daily [Active]; - PMHx: 14:23 Asthma; epilepsy; GERD; High Cholesterol; Hypertension; Migraines; Kidney stones; ch kidney infections; - PSHx: 14:23 ; D \\T\\ C; Kidney stents; Lithotripsy; golden eye sx; uterine; ch - Immunization history:: Adult Immunizations up to date, Last tetanus immunization: up to date < 5 years ago Flu vaccine is not up to date. - Social history:: Smoking status: Patient uses tobacco products, smokes one-half pack cigarettes per day, Patient/guardian denies using alcohol, street drugs. - Ebola Screening: : Patient negative for fever greater than or equal to 101.5 degrees Fahrenheit, and additional compatible Ebola Virus Disease symptoms Patient denies exposure to infectious person Patient denies travel to an Ebola-affected area in the 21 days before illness onset No symptoms or risks identified at this time. ROS: 17:32 Constitutional: Negative for fever, chills, and weight loss, Eyes: Negative for injury, kdr pain, redness, and discharge, Neck: Negative for injury, pain, and swelling. 17:32 ENT: Positive for of the left cheek, Left mandibular pain. Exam: 17:32 Constitutional: This is a well developed, well nourished patient who is awake, alert, kdr and in no acute distress. Eyes: Pupils equal round and reactive to light, extra-ocular motions intact. Lids and lashes normal. Conjunctiva and sclera are non-icteric and not injected. Cornea within normal limits. Periorbital areas with no swelling, redness, or edema. ENT: Nares patent. No nasal discharge, no septal abnormalities noted. Tympanic membranes are normal and external auditory canals are clear. Oropharynx with no redness, swelling, or masses, exudates, or evidence of obstruction, uvula midline. Mucous membranes moist. 17:32 Head/face: Noted is contusion, that is superficial, of the left cheek. Vital Signs: 14:23 BP 124 / 86; Pulse 99; Resp 14; Temp 98.8; Pulse Ox 99% on R/A; Weight 70.76 kg; Height ch 5 ft. 3 in. (160.02 cm); Pain 9/10; 15:20 BP 130 / 103; Pulse 83; Resp 18; Temp 98.3; Pulse Ox 100% ; hs1 16:20 BP 124 / 98; Pulse 87; Resp 16; Pulse Ox 99% on R/A; Pain 7/10; rb1 14:23 Body Mass Index 27.63 (70.76 kg, 160.02 cm) ch MDM: 16:20 Patient medically screened. kdr 17:32 Data reviewed: vital signs, nurses notes, radiologic studies. kdr 04/16 15:04 Order name: Urine Dipstick--Ancillary (enter results); Complete Time: 16:15 ag 04/16 15:04 Order name: Urine --Ancillary (enter results); Complete Time: 16:15 ag 04/16 15:02 Order name: CT Facial Bones W/O Con; Complete Time: 16:15 kdr Administered Medications: 16:04 Drug: [facility] 10 mg-325 mg 1 tabs Route: PO; hb 16:30 Follow up: Response: No adverse reaction; Pain is decreased rb1 Disposition: 04/16/18 16:20 Discharged to Home. Impression: Mandibular pain/contusion. - Condition is Stable. - Discharge Instructions: Temporomandibular Joint Syndrome, Facial or Scalp Contusion, [id number]. - Prescriptions for Tylenol- Codeine #3 300-30 mg Oral Tablet - take 2 tablets by ORAL route every 6 hours As needed; 16 tablet. - Medication Reconciliation Form, Thank You Letter, Prescription Opioid Use form. - Follow up: None, None; When: 2 - 3 days; Reason: If symptoms return, Further diagnostic work-up, Recheck today's complaints, Continuance of care, Re-evaluation by your physician. - Problem is new. - Symptoms have improved. Signatures: Dispatcher [employer] EDAditi Ly RN RN Rustam Bell MD MD [facility] Lucia Schroeder RN RN rb1 Grace Brantley RN RN Corrections: (The following items were deleted from the chart) 16:35 16:20 04/16/2018 16:20 Discharged to Home. Impression: Mandibular pain/contusion. rb1 Condition is Stable. Forms are Medication Reconciliation Form, Thank You Letter, Antibiotic Education, Prescription Opioid Use. Follow up: None None; When: 2 - 3 days; Reason: If symptoms return, Further diagnostic work-up, Recheck today's complaints, Continuance of care, Re-evaluation by your physician. Problem is new. Symptoms have improved. kdr
--- NOTE | 2018-04-16 16:20 | ER ---
Nurse's Notes [facility] Name: Guero Chanel Age: 38 yrs Sex: Female : 1980 Arrival Date: 04/16/2018 Time: 14:16 Bed 16 Private MD: None, None Diagnosis: Mandibular pain/contusion Presentation: 04/16 14:20 Presenting complaint: states: kicked in the L jaw by a horse around 0700 this morning. Care prior to arrival: None. Mechanism of Injury: horse Kick. Trauma event details: Injury occurred in the [facility], [place]. Injury occurred: April 16, 2018 Injury occurred at: 07:00. 14:20 Acuity: CEDRICK 3 14:20 Method Of Arrival: Ambulatory 14:21 Transition of care: patient was not received from another setting of care. Onset of symptoms was April 16, 2018 at 07:00. Risk Assessment: Do you want to hurt yourself or someone else? Patient reports no desire to harm self or others. Initial Sepsis Screen: Does the patient meet any 2 criteria? No. Patient's initial sepsis screen is negative. Does the patient have a suspected source of infection? No. Patient's initial sepsis screen is negative. Care prior to arrival: Medication(s) given: Motrin. Triage Assessment: 14:23 Pain: Complains of pain in left jaw Pain currently is 9 out of 10 on a pain scale. 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 Trauma Activation: Not Applicable Physician: ED Physician; Name: ; Notified At: ; Arrived At: Physician: General Surgeon; Name: ; Notified At: ; Arrived At: Physician: Radiology; Name: ; Notified At: ; Arrived At: Physician: Respiratory; Name: ; Notified At: ; Arrived At: Physician: Lab; Name: ; Notified At: ; Arrived At: Historical: - Allergies: 14:23 "Silk Tape"; ch 14:23 Bactrim; ch 14:23 Doxycycline; ch 14:23 Latex, Natural Rubber; ch 14:23 Macrobid; ch - Home Meds: 14:23 Depakote 500 mg Oral TbEC 1 tab 3 times per day [Active]; Flexeril 10 mg Oral tab 1 tab ch 2 times per day [Active]; meloxicam Oral [Active]; risperidone 0.5 mg Oral tab once daily [Active]; - PMHx: 14:23 Asthma; epilepsy; GERD; High Cholesterol; Hypertension; Migraines; Kidney stones; ch kidney infections; - PSHx: 14:23 ; D \\T\\ C; Kidney stents; Lithotripsy; golden eye sx; uterine; ch - Immunization history:: Adult Immunizations up to date, Last tetanus immunization: up to date < 5 years ago Flu vaccine is not up to date. - Social history:: Smoking status: Patient uses tobacco products, smokes one-half pack cigarettes per day, Patient/guardian denies using alcohol, street drugs. - Ebola Screening: : Patient negative for fever greater than or equal to 101.5 degrees Fahrenheit, and additional compatible Ebola Virus Disease symptoms Patient denies exposure to infectious person Patient denies travel to an Ebola-affected area in the 21 days before illness onset No symptoms or risks identified at this time. Screenin:30 Abuse screen: Denies threats or abuse. Denies injuries from another. Nutritional hb screening: No deficits noted. Tuberculosis screening: No symptoms or risk factors identified. Fall Risk None identified. Assessment: 14:20 General: Appears in no apparent distress. comfortable, Behavior is calm, cooperative, ch appropriate for age. 14:30 General: Appears in no apparent distress. comfortable, Behavior is calm, cooperative. rb1 Pain: Complains of pain in left jaw Pain currently is 10 out of 10 on a pain scale. Neuro: Level of Consciousness is awake, alert, obeys commands, Oriented to person, place, time, situation. Cardiovascular: Capillary refill < 3 seconds is brisk in bilateral fingers. Respiratory: Airway is patent Respiratory effort is even, unlabored, Respiratory pattern is regular, symmetrical. GI: No signs and/or symptoms were reported involving the gastrointestinal system. : No signs and/or symptoms were reported regarding the genitourinary system. Derm: Skin is red, left jaw. 14:30 Musculoskeletal: Range of motion: present in jaw. rb1 15:30 Reassessment: Patient appears in no apparent distress at this time. No changes from rb1 previously documented assessment. 16:30 Reassessment: Patient appears in no apparent distress at this time. Patient and/or rb1 family updated on plan of care and expected duration. Pain level reassessed. Patient is alert, oriented x 3, equal unlabored respirations, skin warm/dry/pink. pain 7/10. Vital Signs: 14:23 BP 124 / 86; Pulse 99; Resp 14; Temp 98.8; Pulse Ox 99% on R/A; Weight 70.76 kg; Height ch 5 ft. 3 in. (160.02 cm); Pain 9/10; 15:20 BP 130 / 103; Pulse 83; Resp 18; Temp 98.3; Pulse Ox 100% ; hs1 16:20 BP 124 / 98; Pulse 87; Resp 16; Pulse Ox 99% on R/A; Pain 7/10; rb1 14:23 Body Mass Index 27.63 (70.76 kg, 160.02 cm) ED Course: 14:16 Patient arrived in ED. sb2 14:16 None, None is Private Physician. sb2 14:21 Triage completed. ch 14:23 Arm band placed on left wrist. Patient placed in an exam room, on a stretcher. ch 14:30 Patient has correct armband on for positive identification. Bed in low position. Call rb1 light in reach. Side rails up X 1. Pulse ox on. NIBP on. Warm blanket given. 14:49 Rustam Bell MD is Attending Physician. kdr 14:51 Lucia Schroeder, ZIA is Primary Nurse. rb1 15:11 CT Facial Bones W/O Con In Process Unspecified. EDMS 15:11 CT completed. Patient tolerated procedure well. Patient moved to CT. Patient moved back de from CT. 16:19 None, None is Referral Physician. kdr 16:30 No provider procedures requiring assistance completed. Patient did not have IV access hb during this emergency room visit. Administered Medications: 16:04 Drug: [facility] 10 mg-325 mg 1 tabs Route: PO; hb 16:30 Follow up: Response: No adverse reaction; Pain is decreased rb1 Outcome: 16:20 Discharge ordered by . kdr 16:30 Discharged to home ambulatory, with significant other. hb 16:30 Condition: stable 16:30 Discharge instructions given to patient, significant other, Instructed on discharge instructions, follow up and referral plans. medication usage, Demonstrated understanding of instructions, follow-up care, medications, Prescriptions given X 1. 16:35 Patient left the ED. rb1 Signatures: Dispatcher [employer] EDMS Aditi Posey, RN RN Rustam Bell MD MD [facility] Lucia Schroeder, ZIA RN rb1 Grace Brantley RN RN Max, Siria Osuna 2 Austyn Villela 1
== END 2018-04-16 16:35 | disposition home or self-care (01) ==
LOC: ER 14:15
DX: S00.83XA Contusion of other part of head, initial encounter (principal); W55.12XA Struck by horse, initial encounter; Y93.9 Activity, unspecified; Y92.9 Unspecified place or not applicable; Z88.1 Allergy status to other antibiotic agents; Z91.040 Latex allergy status; Z91.048 Other nonmedicinal substance allergy status; I10 Essential (primary) hypertension; E78.00 Pure hypercholesterolemia, unspecified; G40.909 Epilepsy, unspecified, not intractable, without status epilepticus
CPT/HCPCS: 70486; 76377; 81003; 81025; 99284

== ENCOUNTER 2018-06-22 11:38 | Emergency (ER) | payer SELFPAY ==
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
[2018-06-22] MEDS ORDERED: HYDROCODONE/APAP 10/325 TAB ONE (14:15)
[2018-06-22] MEDS ORDERED: CEPHALEXIN 250 MG CAP ONE (14:16)
== END 2018-06-22 14:19 | disposition home or self-care (01) ==
LOC: ER 11:38
DX: S00.93XA Contusion of unspecified part of head, initial encounter (principal); K02.9 Dental caries, unspecified; J45.909 Unspecified asthma, uncomplicated; G40.909 Epilepsy, unspecified, not intractable, without status epilepticus; K21.9 Gastro-esophageal reflux disease without esophagitis; E78.00 Pure hypercholesterolemia, unspecified; I10 Essential (primary) hypertension; Z88.1 Allergy status to other antibiotic agents; Z91.040 Latex allergy status; Z91.048 Other nonmedicinal substance allergy status; F17.210 Nicotine dependence, cigarettes, uncomplicated
CPT/HCPCS: 70450; 70486; 76377; 99284

== ENCOUNTER 2018-07-08 11:14 | Emergency (ER) | payer SELFPAY ==
[2018-07-08] MEDS ORDERED: ACETAMINOPHEN 325 MG TABLET ONE (12:22)
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
== END 2018-07-08 12:52 | disposition home or self-care (01) ==
LOC: ER 11:14
DX: S00.83XA Contusion of other part of head, initial encounter (principal); K02.9 Dental caries, unspecified; W50.0XXA Accidental hit or strike by another person, initial encounter; Y93.89 Activity, other specified; Y92.9 Unspecified place or not applicable; Z88.1 Allergy status to other antibiotic agents; Z88.8 Allergy status to other drugs, medicaments and biological substances; Z91.040 Latex allergy status; Z91.048 Other nonmedicinal substance allergy status; I10 Essential (primary) hypertension
CPT/HCPCS: 70450; 70486; 76377; 99283

== ENCOUNTER 2018-07-13 18:11 | Emergency (ER) | payer SELFPAY ==
[2018-07-13] MEDS ORDERED: HYDROCODONE/APAP 5/325 MG TAB ONE (19:36)
--- NOTE | 2018-07-13 20:42 | EDPHYS ---
Physician Documentation [facility] Name: Guero Chanel Age: 38 yrs Sex: Female : 1980 Arrival Date: 07/13/2018 Time: 18:15 Bed 9 Private MD: None, None ED Physician Hernan Wilson HPI: 07/13 19:22 This 38 yrs old Female presents to ER via Ambulatory with complaints of Mouth jmm Problem. 19:22 The patient presents with broken tooth/teeth, pain. Onset: The symptoms/episode jmm began/occurred acutely, just prior to arrival. This is a 38 year old female with a history of epilepsy that presents to the ED with complaints of oral pain after pulling out a tooth at home with pliers. States having bleeding which has decreased since the episode. Patient states she removed the tooth due to it irrigating her mouth. Widespread dental decay noted. Patient attributes this to her epilepsy with repeated injuries. . Historical: - Allergies: 18:23 "Silk Tape"; sv 18:23 Bactrim; sv 18:23 Doxycycline; sv 18:23 Latex, Natural Rubber; sv 18:23 Macrobid; sv - PMHx: 18:23 Asthma; epilepsy; GERD; High Cholesterol; Hypertension; Kidney Infections; Kidney sv stones; Migraines; - PSHx: 18:23 ; D \\T\\ C; Kidney stents; Lithotripsy; golden eye sx; uterine; sv - Immunization history:: Adult Immunizations up to date. - Ebola Screening: : Patient denies travel to an Ebola-affected area in the 21 days before illness onset. ROS: 19:22 Constitutional: Negative for fever, chills, and weight loss. jmm 19:22 ENT: Positive for Teeth pain 19:22 All other systems are negative. Exam: 19:22 Constitutional: This is a well developed, well nourished patient who is awake, alert, jmm and in no acute distress. Head/Face: atraumatic. Eyes: EOMI, no conjunctival erythema appreciated 19:22 Neck: Trachea midline, Supple Chest/axilla: Normal chest wall appearance and motion. Cardiovascular: Regular rate and rhythm. No edema appreciated Respiratory: Normal respirations, no respiratory distress appreciated Abdomen/GI: Non distended, soft Back: Normal ROM Skin: General appearance color normal MS/ Extremity: Moves all extremities, no obvious deformities appreciated, no edema noted to the lower extremities Neuro: Awake and alert, normal gait Psych: Behavior is normal, Mood is normal, Patient is cooperative and pleasant 19:22 ENT: Posterior pharynx: is normal, Dental exam: missing teeth, specifically the upper right central Incisor (#8). Vital Signs: 18:23 BP 121 / 95; Pulse 89; Resp 18; Temp 98.5; Pulse Ox 99% ; sv MDM: 19:22 Patient medically screened. [facility] 20:41 Data reviewed: vital signs, nurses notes. Counseling: I had a detailed discussion with deep the patient and/or guardian regarding: the historical points, exam findings, and any diagnostic results supporting the discharge/admit diagnosis, the need for outpatient follow up, to return to the emergency department if symptoms worsen or persist or if there are any questions or concerns that arise at home. 20:41 ED course: No active bleeding appreciated patient prescribed oral antibiotics and given [facility] strict return precautions. patient understood and agrees with the plan of care. . Administered Medications: 19:27 Drug: [place] 5 mg-325 mg 1 tabs Route: PO; aj1 20:29 Follow up: Response: No adverse reaction aj1 Disposition: 07/13/18 20:41 Discharged to Home. Impression: Dental Pain. - Condition is Stable. - Discharge Instructions: Dental Pain. - Prescriptions for Amoxicillin 875 mg Oral Tablet - take 1 tablet by ORAL route every 12 hours for 10 days; 20 tablet. - Medication Reconciliation Form, Thank You Letter, Antibiotic Education, Prescription Opioid Use form. - Follow up: Private Physician; When: 2 - 3 days; Reason: Recheck today's complaints, Continuance of care, Re-evaluation by your physician. Signatures: Laura Horn RN RN aj1 Yandy Stanley RN RN sv Talib Ramon PA PA jmm Corrections: (The following items were deleted from the chart) 21:24 20:41 07/13/2018 20:41 Discharged to Home. Impression: Dental Pain. Condition is aj1 Stable. Forms are Medication Reconciliation Form, Thank You Letter, Antibiotic Education, Prescription Opioid Use. Follow up: Private Physician; When: 2 - 3 days; Reason: Recheck today's complaints, Continuance of care, Re-evaluation by your physician. [facility]
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
== END 2018-07-13 21:24 | disposition home or self-care (01) ==
LOC: ER 18:11
DX: K08.89 Other specified disorders of teeth and supporting structures (principal); G40.909 Epilepsy, unspecified, not intractable, without status epilepticus; J45.909 Unspecified asthma, uncomplicated; K21.9 Gastro-esophageal reflux disease without esophagitis; I10 Essential (primary) hypertension; Z88.1 Allergy status to other antibiotic agents; Z91.040 Latex allergy status
CPT/HCPCS: 99283

== ENCOUNTER 2018-07-27 09:41 | Emergency (ER) | payer SELFPAY ==
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
== END 2018-07-27 13:11 | disposition home or self-care (01) ==
LOC: ER 09:41
DX: S03.2XXA Dislocation of tooth, initial encounter (principal); W50.1XXA Accidental kick by another person, initial encounter; J45.909 Unspecified asthma, uncomplicated; K21.9 Gastro-esophageal reflux disease without esophagitis; E78.00 Pure hypercholesterolemia, unspecified; I10 Essential (primary) hypertension; G40.909 Epilepsy, unspecified, not intractable, without status epilepticus; Z88.1 Allergy status to other antibiotic agents; Z91.040 Latex allergy status; F17.210 Nicotine dependence, cigarettes, uncomplicated
CPT/HCPCS: 99284